=== PATIENT | male | born 1975 | race Two or more races ===

== ENCOUNTER 2023-02-13 21:27 | Inpatient (IN) | payer MEDICAID, OTHER ==
[~2023-02-13] VITALS: Ht 177.8 cm; Wt 81.0 kg
[2023-02-13] MEDS ORDERED: HALOPERIDOL LACTATE 5 MG/ML INJ VIAL IM ONE (22:00)
[2023-02-13] MEDS ORDERED: LORazepam 2MG/ML-1ML VIAL IV ONE (22:00)
[2023-02-13 22:21] LABS: Basophils # (auto) 0 10 ^3/uL (0-0.2); Basophils % (auto) 0.4 % (0.0-2.0); Eosinophils # (auto) 0.2 10 ^3/uL (0-0.8); Hematocrit 42.3 % (41.0-53.0); Lymphocytes % (auto) 35.1 % (10.0-50.0); Mean Corpuscular Hemoglobin 32.6 pg (28.0-32.0); Mean Corpuscular Hgb Conc. 33.1 g/dL (32.0-36.0); Mean Corpuscular Volume 98.5 fL (80.0-100.0); Monocytes # (auto) 0.7 10 ^3/uL (0-1.3); Monocytes % (auto) 6.1 % (0.0-12.0); Neutrophils # (auto) 6.5 10 ^3/uL (1.6-8.6); Neutrophils % (auto) 56.4 % (37.0-80.0); Nucleated Red Blood Cells % 0.2 %; Red Cell Distribution Width 13.3 % (11.8-14.3); White Blood Cell 11.5 10^3/uL (4.4-10.8)
[2023-02-13 22:32] LABS: Alanine Aminotransferase 38 U/L (7-40); Alkaline Phosphatase 83 U/L (46-116); Anion Gap 19 (5-15); Aspartate Aminotransferase 21 U/L (13-40); BUN/Creatinine Ratio 13.1 (10.0-20.0); Blood Alcohol 270.2 mg/dL (<10); Blood Urea Nitrogen 23 mg/dL (9-23); Calcium 9.5 mg/dL (8.7-10.4); Carbon Dioxide 16 mmol/L (20-30); Chloride 111 mmol/L (98-107); Glucose 141 mg/dL (74-106); Magnesium 2.3 mg/dL (1.6-2.6); Potassium 3.9 mmol/L (3.5-5.1); Sodium 146 mmol/L (136-145)
[2023-02-13 22:33] LABS: Albumin 5.2 g/dL (3.2-4.8); Bilirubin, Total 0.3 mg/dL (0.2-1.0); Total Protein 8.1 g/dL (5.7-8.2)
[2023-02-13 22:34] LABS: Salicylate < 3.0 mg/dL (2.8-20.0)
[2023-02-13 22:40] VITALS: PULSE 77; RESP 16; O2SAT 98
[2023-02-13] MEDS ORDERED: SODIUM CHLORIDE 0.9% 2,000 ML IV ONE (23:15)
[2023-02-14] MEDS ORDERED: LACTATED RINGER'S 2,000 ML IV ONE (06:00)
[2023-02-14] MEDS ORDERED: ALBUMIN 25% 100 ML IV ONE (06:00)
[2023-02-14] MEDS ORDERED: NICOTINE 21MG/24 HR TOPICAL PATCH TD ONE (06:00)
[2023-02-14] MEDS ORDERED: SODIUM CHLORIDE 0.9% 1,000 ML IV ONE (09:15)
[2023-02-14] MEDS ORDERED: LORazepam 2MG/ML-1ML VIAL IV PRN (09:15)
[2023-02-14] MEDS ORDERED: ACETAMINOPHEN 325 MG TAB PO PRN (09:15)
[2023-02-14] MEDS ORDERED: CHOL200043 PO (09:17)
[2023-02-14] MEDS ORDERED: LISI10TA34 PO ×2 (09:17→18:53)
[2023-02-14] MEDS ORDERED: CYCL-611 PO (09:17)
[2023-02-14] MEDS ORDERED: ASPI-325 PO (09:17)
[2023-02-14] MEDS ORDERED: NALO4SPR3 NAS (09:17)
[2023-02-14] MEDS ORDERED: ATOR20TA50 PO (09:17)
[2023-02-14] MEDS ORDERED: NICO7DIS19 (09:17)
[2023-02-14] MEDS ORDERED: AMIT10TA9 PO (09:17)
[2023-02-14] MEDS ORDERED: AMIT-256 PO (09:17)
[2023-02-14] MEDS: CHOLECALCIFEROL (VITD3) 2,000 UNIT CAP/TAB PO SCH (10:00)
[2023-02-14] MEDS: LISINOPRIL 10 MG TAB PO SCH ×2 (10:00→21:32)
[2023-02-14] MEDS: ASPirin-EC 81 mg tab PO SCH (10:00)
[2023-02-14] MEDS: ENOXAPARIN SOD 40 MG/0.4 ML SYRINGE SC SCH (10:00)
[2023-02-14] MEDS: NICOTINE 7MG/24HR TOPICAL PATCH TD SCH (10:00)
[2023-02-14] MEDS ORDERED: HYDROcodone-ACET 5/325MG TAB PO ONE (10:45)
[2023-02-14] MEDS: FOLIC ACID 1 MG, MULTIPLE VITAMIN 10 ML, MAGNESIUM SULF SDV 50% 8 MEQ, THIAMINE INJ 100... INJ SCH ×5 (12:20)
[2023-02-14 18:15] VITALS: BP 113/76; PULSE 97; RESP 19; TEMP 97.7; O2SAT 97
[2023-02-14 18:16] VITALS: BP 113/76; PULSE 76; RESP 19; TEMP 97.9; O2SAT 97
[2023-02-14] MEDS ORDERED: HYDR-4798 PO (18:53)
[2023-02-14] MEDS ORDERED: AMLO1TAB22 PO (18:53)
[2023-02-14] MEDS ORDERED: MORP1TAB12 PO (18:53)
[2023-02-14 20:00] VITALS: PULSE 95; RESP 18; O2SAT 99
[2023-02-14] MEDS: AMITRIPTYLINE HCL 10 MG TAB PO SCH (21:31)
[2023-02-14] MEDS: ATORVASTATIN 20 MG TAB PO SCH (21:31)
[2023-02-14 22:00] VITALS: BP 117/73; PULSE 95; RESP 18; TEMP 98.2; O2SAT 99
[2023-02-15] MEDS: HYDROcodone-ACET 5/325MG TAB PO PRN ×4 (03:13→22:17)
[2023-02-15 05:00] VITALS: BP 114/79; PULSE 83; RESP 18; TEMP 99; O2SAT 96
[2023-02-15 06:59] LABS: Basophils # (auto) 0 10 ^3/uL (0-0.2); Basophils % (auto) 0.2 % (0.0-2.0); Eosinophils # (auto) 0.2 10 ^3/uL (0-0.8); Eosinophils % (auto) 2.4 % (0.0-7.0); Hematocrit 33.8 % (41.0-53.0); Hemoglobin 11.5 g/dL (13.5-17.5); Lymphocytes # (auto) 1.5 10 ^3/uL (0.4-5.4); Lymphocytes % (auto) 17.3 % (10.0-50.0); Mean Corpuscular Hemoglobin 32.9 pg (28.0-32.0); Mean Corpuscular Hgb Conc. 34.1 g/dL (32.0-36.0); Mean Corpuscular Volume 96.6 fL (80.0-100.0); Monocytes # (auto) 0.6 10 ^3/uL (0-1.3); Neutrophils # (auto) 6.4 10 ^3/uL (1.6-8.6); Neutrophils % (auto) 73.1 % (37.0-80.0); Nucleated Red Blood Cells % 0.2 %; Red Cell Distribution Width 13.2 % (11.8-14.3); White Blood Cell 8.7 10^3/uL (4.4-10.8)
[2023-02-15 07:11] LABS: Alanine Aminotransferase 27 U/L (7-40); Albumin 3.8 g/dL (3.2-4.8); Alkaline Phosphatase 53 U/L (46-116); Anion Gap 6 (5-15); Aspartate Aminotransferase 25 U/L (13-40); BUN/Creatinine Ratio 15.1 (10.0-20.0); Bilirubin, Total 0.6 mg/dL (0.2-1.0); Blood Urea Nitrogen 14 mg/dL (9-23); Calcium 8.5 mg/dL (8.5-10.1); Carbon Dioxide 24 mmol/L (20-30); Chloride 113 mmol/L (98-107); Glucose 95 mg/dL (74-106); Sodium 143 mmol/L (136-145); Total Protein 5.9 g/dL (5.7-8.2)
[2023-02-15 09:00] VITALS: BP 115/79; PULSE 63; RESP 19; TEMP 97.3; O2SAT 98
[2023-02-15] MEDS: LISINOPRIL 10 MG TAB PO SCH ×2 (09:56→22:21)
[2023-02-15] MEDS: CHOLECALCIFEROL (VITD3) 2,000 UNIT CAP/TAB PO SCH (09:56)
[2023-02-15] MEDS: ASPirin-EC 81 mg tab PO SCH (09:56)
[2023-02-15] MEDS: NICOTINE 7MG/24HR TOPICAL PATCH TD SCH (09:59)
[2023-02-15] MEDS: ENOXAPARIN SOD 40 MG/0.4 ML SYRINGE SC SCH (10:11)
[2023-02-15 11:03] LABS: Amphetamine Screen, Urine Neg (NEGATIVE); Barbiturate Scree,Urine Neg (NEGATIVE); Benzodiazephine Screen, Urine Neg (NEGATIVE); Cocaine Screen, Urine Neg (NEGATIVE); Opiate Scree,Urine Neg (NEGATIVE)
[2023-02-15 11:04] LABS: Cannabinoid Screen, Urine Neg (NEGATIVE); Phencyclidine Screen, Urine Neg (NEGATIVE)
[2023-02-15 11:06] LABS: Urine Bacteria NONE SEEN /hpf (None Seen); Urine Blood Negative /uL (Negative); Urine Clarity Clear (Clear); Urine Color Yellow (Yellow); Urine Mucus FEW (None Seen); Urine Protein, UAD Negative (Negative); Urine Specific Gravity 1.017 (1.001-1.035); Urine Urobilinogen Normal (Negative); Urine WBC 1 /hpf (0 - 3); Urine pH 6.5 (5.0-8.0)
[2023-02-15] MEDS: FOLIC ACID 1 MG, MULTIPLE VITAMIN 10 ML, MAGNESIUM SULF SDV 50% 8 MEQ, THIAMINE INJ 100... INJ SCH ×5 (12:00)
[2023-02-15 13:00] VITALS: BP 114/75; PULSE 67; RESP 19; TEMP 97.7; O2SAT 100
[2023-02-15] MEDS ORDERED: THIAMINE 100mg/ml INJ (200mg/2ml VIAL) IV ONE (14:30)
[2023-02-15 17:00] VITALS: BP 118/73; PULSE 66; RESP 19; TEMP 98; O2SAT 95
[2023-02-15 17:51] LABS: Creatinine, Urine 105.13 mg/dL (30.0-125.0)
[2023-02-15 20:00] VITALS: PULSE 70; RESP 18; O2SAT 99
[2023-02-15 22:00] VITALS: BP 128/92; PULSE 70; RESP 18; TEMP 97.7; O2SAT 95
[2023-02-15] MEDS: AMITRIPTYLINE HCL 10 MG TAB PO SCH (22:24)
[2023-02-15] MEDS: ATORVASTATIN 20 MG TAB PO SCH (22:24)
[2023-02-16 05:00] VITALS: BP 109/73; PULSE 63; RESP 18; TEMP 97.9; O2SAT 95
[2023-02-16 06:17] LABS: Basophils # (auto) 0.1 10 ^3/uL (0-0.2); Basophils % (auto) 0.8 % (0.0-2.0); Eosinophils # (auto) 0.2 10 ^3/uL (0-0.8); Hematocrit 35.5 % (41.0-53.0); Hemoglobin 11.7 g/dL (13.5-17.5); Lymphocytes # (auto) 2.2 10 ^3/uL (0.4-5.4); Lymphocytes % (auto) 26.6 % (10.0-50.0); Mean Corpuscular Hemoglobin 33.2 pg (28.0-32.0); Mean Corpuscular Hgb Conc. 32.8 g/dL (32.0-36.0); Monocytes # (auto) 0.5 10 ^3/uL (0-1.3); Monocytes % (auto) 6.1 % (0.0-12.0); Neutrophils # (auto) 5.4 10 ^3/uL (1.6-8.6); Neutrophils % (auto) 64.5 % (37.0-80.0); Nucleated Red Blood Cells % 0.1 %; Red Blood Cells 3.52 10^6/uL (4.5-5.90); Red Cell Distribution Width 13.4 % (11.8-14.3); White Blood Cell 8.3 10^3/uL (4.4-10.8)
[2023-02-16 06:18] LABS: Alanine Aminotransferase 20 U/L (7-40); Albumin 3.9 g/dL (3.2-4.8); Alkaline Phosphatase 56 U/L (46-116); Anion Gap 7 (5-15); Aspartate Aminotransferase 17 U/L (13-40); BUN/Creatinine Ratio 9.3 (10.0-20.0); Bilirubin, Total 0.4 mg/dL (0.2-1.0); Blood Urea Nitrogen 9 mg/dL (9-23); Calcium 8.5 mg/dL (8.7-10.4); Carbon Dioxide 22 mmol/L (20-30); Chloride 112 mmol/L (98-107); Magnesium 2.1 mg/dL (1.6-2.6); Phosphorus 3.6 mg/dL (2.4-5.1); Potassium 3.9 mmol/L (3.5-5.1); Sodium 141 mmol/L (136-145)
[2023-02-16 06:19] LABS: Folate (Folic Acid) 14.01 ng/mL (>5.38); Total Protein 6.1 g/dL (5.7-8.2)
[2023-02-16 06:22] LABS: INR 1.05 (0.9-1.15)
[2023-02-16] MEDS ORDERED: CYANOCOBALAMIN (B-12) 1000 MCG/1 ML VIAL IM ONE (07:30)
[2023-02-16 07:54] LABS: Glucose 93 mg/dL (74-106)
[2023-02-16 07:55] LABS: Triglycerides 100 mg/dL (< 150)
[2023-02-16 07:56] LABS: LDL Cholesterol 54 mg/dL (< 100)
[2023-02-16 07:57] LABS: Cholesterol 94 mg/dL (< 200); HDL Cholesterol 25 mg/dL (40-59)
[2023-02-16 08:00] VITALS: O2SAT 98
[2023-02-16 08:30] VITALS: BP 114/72; PULSE 72; RESP 18; TEMP 98.1; O2SAT 98
[2023-02-16] MEDS: LACTULOSE 20Gm/30ML SOLN PO SCH ×2 (10:00→10:36)
[2023-02-16] MEDS ORDERED: MULTIPLE VITAMINS W/ MINERALS TAB PO SCH (10:00)
[2023-02-16] MEDS: CHOLECALCIFEROL (VITD3) 2,000 UNIT CAP/TAB PO SCH (10:36)
[2023-02-16] MEDS: ASPirin-EC 81 mg tab PO SCH (10:36)
[2023-02-16] MEDS: LISINOPRIL 10 MG TAB PO SCH (10:37)
[2023-02-16] MEDS: ENOXAPARIN SOD 40 MG/0.4 ML SYRINGE SC SCH (10:37)
[2023-02-16] MEDS: NICOTINE 7MG/24HR TOPICAL PATCH TD SCH (10:38)
[2023-02-16] MEDS: HYDROcodone-ACET 5/325MG TAB PO PRN (10:42)
[2023-02-16] MEDS ORDERED: FOLITAB22 PO (11:56)
[2023-02-16] MEDS ORDERED: FERR1TAB36 PO (11:58)
[2023-02-16 12:30] VITALS: BP 118/79; PULSE 63; RESP 20; TEMP 98.2; O2SAT 98
[2023-02-16 14:07] VITALS: BP 114/72; PULSE 72; RESP 18; TEMP 98.1; O2SAT 98
== END 2023-02-16 14:50 | disposition home or self-care (01) | DRG 422 ==
LOC: EDBD 21:27 → ER 21:30 → OVERFLOW 02-14 09:15 → EAST 02-14 17:33
PROVIDERS: ADMIT Internal Medicine; ATTEND Student in an Organized Health Care Education/Training Program
DX: E86.0 Dehydration (principal); N17.0 Acute kidney failure with tubular necrosis; G92.9 Unspecified toxic encephalopathy; E87.0 Hyperosmolality and hypernatremia; E87.29 Other acidosis; I95.9 Hypotension, unspecified; E87.8 Other disorders of electrolyte and fluid balance, not elsewhere classified; F10.129 Alcohol abuse with intoxication, unspecified; D50.9 Iron deficiency anemia, unspecified; D72.829 Elevated white blood cell count, unspecified; E78.5 Hyperlipidemia, unspecified; E53.8 Deficiency of other specified B group vitamins; R73.9 Hyperglycemia, unspecified; F17.210 Nicotine dependence, cigarettes, uncomplicated; Y90.8 Blood alcohol level of 240 mg/100 ml or more; F19.10 Other psychoactive substance abuse, uncomplicated; I10 Essential (primary) hypertension; Z78.1 Physical restraint status; Z71.6 Tobacco abuse counseling; R09.89 Other specified symptoms and signs involving the circulatory and respiratory systems
CPT/HCPCS: 36415; 70450; 71045; 71250; 80053; 80061; 80307; 80320; 80329; 81001; 82140; 82306; 82570; 82607; 82746; 83036; 83540; 83550; 83605; 83735; 83880; 84100; 84300; 84443; 84484; 85025; 85610; 93306; 96361; 96365; 96372; 96375; G0378; P9047

== ENCOUNTER 2024-07-30 20:19 | Emergency (ER) | payer MEDICAID ==
[~2024-07-30] VITALS: Ht 188 cm; Wt 90.9 kg
[~2024-07-30 20:19] MED LIST: AMIT-256 PO; AMIT-399 PO; AMLO1TAB22 PO; ASPI-325 PO; ATOR20TA50 PO; CHOL200043 PO; CYCL-611 PO; FERR1TAB36 PO; FOLITAB22 PO; HYDR-4798 PO; LISI10TA34 PO; MORP1TAB12 PO; NALO4SPR3 NAS; NICO7DIS19
[2024-07-30 20:26] VITALS: BP 140/82; PULSE 87; RESP 16; TEMP 98.6; O2SAT 100
--- NOTE | 2024-07-30 20:54 | ED.PDOC ---
Sarah. trauma (HPI) HPI Comments 48-year-old male who came to ER via EMS for alcohol intoxication. Patient was said to be drinking heavily at home earlier. Was seen by family members laying on the floor covered with blood. Noted right occipital laceration. Patient however claims that he has been coughing up blood recently and the blood on his trousers is most likely from him coughing up blood. Patient currently complaining of headaches, neck pain and back pains. Patient is still intoxicated alcohol at this time with care. Chief Complaint: Fall Injury Time Seen by MD: 20:54 Reviewed notes: Project Inspector Notes Allergies: Coded Allergies: NO KNOWN ALLERGIES (Unverified , 02/13/23) Home Meds Active Scripts Ferrous Sulfate (Iron (Ferrous Sulfate)) 50 Mg Tab, 50 MG PO DAILY for 30 Days, #30 TAB 2 Refills Prov:BUSTER GALDAMEZ RESIDENT 02/16/23 Folic Bwhx-Gnhijkrbmk-Hdpdurym (Folbic) Tab, 1 TAB PO DAILY, #90 TAB 1 Refill Prov:BUSTER GALDAMEZ RESIDENT 02/16/23 Reported Medications Morphine Sulfate (Morphine Sulfate Cr) 15 Mg Tab, 5 MG PO Q6HP, TAB 02/14/23 Hydrocodone-Acetaminophen (Hydrocodone Bitartrate/AC 10-325 mg) 1 Tab Tab, 1 TAB PO Q6HP, TAB 02/14/23 Amlodipine Besylate (Amlodipine Besylate) 5 Mg Tab, 5 MG PO DAILY for 30 Days, MG 02/14/23 Lisinopril (Lisinopril) 10 Mg Tab, 10 MG PO DAILY for 30 Days, MG 02/14/23 Amitriptyline HCl (Amitriptyline HCl) 10 Mg Tab, 1 TAB PO 02/14/23 Naloxone HCl (Naloxone Hydrochloride) 4 Mg/0.1 Ml Spr, [place] 02/14/23 Cholecalciferol (D3 SUPER STRENGTH) 2,000 Unit Cap, 1 CAP PO DAILY 02/14/23 Aspirin (Aspirin Low Dose) 81 Mg Tab, 1 TAB PO DAILY 02/14/23 Atorvastatin Calcium (ATORVASTATIN CALCIUM) 20 Mg Tab, 1 TAB PO DAILY 02/14/23 Nicotine (Nicotine Transdermal Syst) 7 Mg/24 Hr Dis, 1 DAILY 02/14/23 Amitriptyline HCl (Amitriptyline Hydrochlori) 50 Mg Tab, 1 TAB PO 02/14/23 Lisinopril (Lisinopril) 10 Mg Tab, 1 TAB PO BID 02/14/23 Cyclobenzaprine HCl (Cyclobenzaprine Hydrochlo) 10 Mg Tab, 1 TAB PO TID 02/14/23 Information Source: Patient, Spouse Mode of Arrival: EMS Severity: Moderate Timing: Minutes Duration: Since onset Prehospital treatment: C-Collar Location: Back, Head, Neck Location of neck pain: (R) Posterior, (L) Posterior Location of laceration: Head Mechanism: Fall Associated signs and symtoms: ETOH, Headache Past Medical History PAST MEDICAL HISTORY: Denies Surgical History: Denies all surgeries Family History Family History: Reviewed,noncontributory to illness Social History Smoker: Non-Smoker Alcohol: Heavy Drugs: Denies Drug Use Lives In: Home Constitutional: denies: chills, diaphoresis, fatigue, fever, malaise, sweats, weakness, others EENTM: denies: blurred vision, double vision, ear bleeding, ear discharge, ear drainage, ear pain, ear ringing, eye pain, eye redness, hearing loss, mouth pain, mouth swelling, nasal discharge, nose bleeding, nose congestion, nose pain, photophobia, tearing, throat pain, throat swelling, voice changes, others Respiratory: denies: cough, hemoptysis, orthopnea, SOB at rest, shortness of breath, SOB with excertion, stridor, wheezing, others Cardiovascular: denies: chest pain, dizzy spells, diaphoresis, Dyspnea on exertion, edema, irregular heart beat, left arm pain, lightheadedness, palpitations, PND, syncope, others Genitourinary: denies: burning, dysuria, flank pain, frequency, hematuria, incontinence, penile discharge, penile sore, pain, testicle pain, testicle swelling, urgency, others Neurological: reports: headache; denies: dizziness, fainting, left sided numbness, left sided weakness, numbness, paresthesia, pre-existing deficit, right sided numbness, right sided weakness, seizure, speech problems, tingling, tremors, weakness, others Musculoskeletal: reports: back pain, neck pain; denies: gout, joint pain, joint swelling, muscle pain, muscle stiffness, others Integumetry: reports: laceration (Right occipital area); denies: bruises, change in color, change in hair/nails, dryness, lesions, lumps, rash, wounds, others Allergic/Immunocompromised: denies: Difficulty Healing, Frequent Infections, Hives, Itching, others Hematologic/Lymphatic: denies: anemia, blood clots, easy bleeding, easy bruising, swollen glands, others Endocrine: denies: excessive hunger, excessive sweating, excessive thirst, excessive urination, flushing, intolerance to cold, intolerance to heat, unexplained weight gain, unexplained weight loss, others Psychiatric: denies: anxiety, bipolar disorder, depression, hopeless, panic disorder, schizophrenia, sleepless, suicidal, others Physical Exam General Appearance: No Apparent Distress, Normal HEENT: Normal ENT Inspection, Pharynx Normal, TMs Normal Neck: Full Range of Motion, Non-Tender, Normal, Normal Inspection Respiratory: Chest Non-Tender, Lungs Clear, No Accessory Muscle Use, No Respiratory Distress, Normal Breath Sounds Cardiovascular: No Edema, No JVD, No Murmur, No Gallop, Normal Peripheral Pulses, Regular Rate/Rhythm Breast Exam: Deferred Gastrointestinal: No Organomegaly, Non Tender, No Pulsatile Mass, Normal Bowel Sounds, Soft Genitalia: Deferred Pelvic: Deferred Rectal: Deferred Extremities: No calf tenderness, Normal capillary refill, Normal inspection, Normal range of motion, Non-tender, No pedal edema Musculoskeletal : Apperance: Normal Neurologic: Alert, second helper II-XII nml as Tested, No Motor Deficits, Normal Affect, Normal Mood, No Sensory Deficits Cerebellar Function: Normal Reflexes: Normal Skin: Dry, Normal Color, Warm, Other (2 cm posterior scalp abrasion, bleeding controlled, patient is refusing repair) Lymphatic: No Adenopathy Was a procedure done? Was a procedure done?: No Differential Diagnosis Multiple Trauma: Closed Head Injury, Laceration, Other (Alcohol intoxication) Neck Injury: Cervical Sprain, Cervical Strain X-Ray, Labs, Meds, VS Vital Signs Date Time Temp Pulse Resp B/P (MAP) Pulse Ox O2 Delivery O2 Flow Rate FiO2 07/30/24 20:26 98.6 87 16 140/82 (101) 100 98.6 Time of 1ST Reevaluation: 20:49 Reevaluation 1ST: Unchanged Patient Education/Counseling: Diagnosis, Treatment Family Education/Counseling: No Family Present Departure 1 Departure Time of Disposition: 03:04 Impression: Primary Impression: Alcohol abuse with intoxication Additional Impressions: Scalp laceration Head injury Disposition: HOME / SELF CARE / HOMELESS Condition: Stable Discharged With: Self Comments Patient refused wound repair on posterior scalp Critical Care Note Critical Care Time?: No Stability Stability form required: No Heart Score Heart Score: Heart Score Response (Comments) Value History N/A 0 EKG N/A 0 Age N/A 0 Risk Factors N/A 0 Troponin N/A 0 Total 0 I personally scribed for DEVONTE MARTINEZ MD ([email or web address]) on 07/30/24 at 20:54. Electronically submitted by Randy De La Cruz ([email or web address]). DEVONTE MARTINEZ MD Jul 30, 2024 20:54
--- NOTE | 2024-07-30 21:36 | DVH ---
EXAM: CT HEAD WITHOUT CONTRAST HISTORY: pain / fall injury COMPARISON: CT HEAD WITHOUT CONTRAST on DOS: 02/15/23 TECHNIQUE: Axial images were obtained and reformatted in coronal and sagittal planes. All CT scans at this medical facility are performed using dose modulation techniques as appropriate t o a performed exam including the following: Automated exposure control was utilized; adjustment of th e MA and/or KV according to patient size; and use of iterative reconstruction technique. CT Dose: CTDI volume is 53 mGy. Dose-length product is 1314 mGy*cm FINDINGS: Supratentorial Region: No evidence for large acute territorial ischemia. No intracranial hemorrhage is noted. Posterior Fossa: No acute abnormality. Brainstem: Unremarkable. Sellar/Suprasellar Region: Unremarkable. Ventricles, Cisterns, Sulci: Age-appropriate. Orbits: Unremarkable. Paranasal Sinuses: Unremarkable. Mastoid Air Cells: Unremarkable. Vasculature: Unremarkable. Bones/Soft Tissues: No acute osseous abnormality. Right parietal scalp laceration without enlarge h ematoma. Other: None. IMPRESSION: 1. No acute intracranial process.
--- NOTE | 2024-07-30 21:38 | DVH ---
CHEST RADIOGRAPH Indication: cough with hemoptysis Technique: Single frontal view of the chest was obtained Comparison: XY CHEST XRAY 1 VIEW on DOS: 02/14/23 FINDINGS: Lines and Tubes: None Lungs: Clear Pleura: No effusion. No pneumothorax. Cardiomediastinal contours: Unremarkable Bones: Unremarkable IMPRESSION: Clear lungs.
--- NOTE | 2024-07-30 21:48 | DVH ---
EXAM: CT CERVICAL WITHOUT CONTRAST INDICATION: pain fall EXAM DATE: 07/30/2024 09:12 PM COMPARISON: None TECHNIQUE: Multiple axial CT images of the cervical spine were obtained using bone algorithm. Axial a nd coronal reformatting was done. Bone and soft tissue windows were reviewed. Radiation Dose Information: CT Dose: CTDI volume is 16.99 mGy. Dose-length product is 1314.25 mGy*cm FINDINGS: The cervical alignment is intact. No acute cervical spine fracture is identified. The vertebral body heights are intact. No suspicious osseous lesions are identified. Bony spondylosis and degenerative disc changes C3 through C7. There appears to be some bony stenosis of the right neural foramen at C6-7 There is no prevertebral soft tissue swelling. IMPRESSION: 1. No evidence of acute cervical spine fracture or traumatic malalignment. 2. Mild bony stenosis of the right neural foramen at C6-7 3. Bony spondylosis and degenerative disc changes C3 through C7 All CT scans at this medical facility are performed using dose modulation techniques as appropriate t o a performed exam including the following: Automated exposure control was utilized; adjustment of th e MA and/or KV according to patient size; and use of iterative reconstruction technique.
[2024-07-31] MEDS: LIDOCAINE 1% HCL (LOCAL ANESTH.) INJ 20ML MDV ID ONE (01:39)
== END 2024-07-31 01:38 | disposition home or self-care (01) ==
LOC: ER 20:19 → EDBD 20:19 → ER 07-31 01:38
DX: S01.01XA Laceration without foreign body of scalp, initial encounter (principal); S09.90XA Unspecified injury of head, initial encounter; F10.129 Alcohol abuse with intoxication, unspecified; Z79.899 Other long term (current) drug therapy; Z79.82 Long term (current) use of aspirin; X58.XXXA Exposure to other specified factors, initial encounter; Y93.89 Activity, other specified; Y92.89 Other specified places as the place of occurrence of the external cause; Y99.8 Other external cause status; Y90.9 Presence of alcohol in blood, level not specified
CPT/HCPCS: 70450; 71045; 72125